=== PATIENT | female | born 1975 | race Caucasian/White ===

== ENCOUNTER 2024-02-05 13:21 | Emergency (ER) | payer BC ==
[~2024-02-05] VITALS: Ht 167.6 cm; Wt 68.0 kg
[2024-02-05 13:59] LABS: BASOPHILS % 0.3 % (0.0-1.0); EOSINOPHILS # (AUTO) 0.2 (0.0-0.4); EOSINOPHILS % 2.5 % (0.0-6.0); HEMATOCRIT 47.8 % (34.2-44.1); HEMOGLOBIN 15.6 g/dL (12.0-16.0); MEAN CORPUSCULAR HEMOGLOBIN 30.4 pg (28-32); MEAN CORPUSCULAR HGB CONC 32.6 g/dL (31-35); MEAN CORPUSCULAR VOLUME 93.2 fL (81-99); MONOCYTES # (AUTO) 0.6 (0.2-0.8); MONOCYTES % 6.6 % (4.4-11.3); NEUTROPHILS # (AUTO) 4.9 (2.1-6.9); NEUTROPHILS % 56.4 % (38.7-80.0); PLATELET COUNT 304 x10e3/uL (140-360); RED BLOOD COUNT 5.13 x10e6/uL (3.6-5.1); RED CELL DISTRIBUTION WIDTH 12.6 % (11.7-14.4); WHITE BLOOD COUNT 8.74 x10e3/uL (4.8-10.8)
[2024-02-05] MEDS: KETOROLAC TROMETHAMINE 30 MG/ML VIAL IV STA (14:13)
[2024-02-05 14:16] LABS: ALBUMIN 3.8 g/dL (3.5-5.0); ANION GAP 13.3 mmol/L (8-16); BILIRUBIN,TOTAL 0.8 mg/dL (0.2-1.2); CALCIUM 10.9 mg/dL (8.4-10.2); CREATININE, SERUM 0.78 mg/dL (0.57-1.11); POTASSIUM 4.3 mmol/L (3.5-5.1); TOTAL PROTEIN 7.6 g/dL (6.5-8.1)
[2024-02-05 14:22] LABS: TROPONIN I 0.005 ng/mL (0-0.300)
[2024-02-05] MEDS ORDERED: NAPROXEN250 MG PO (14:57)
[2024-02-05 15:17] VITALS: PULSE 78; RESP 16; TEMP 98.7; O2SAT 99
== END 2024-02-05 15:24 | disposition home or self-care (01) ==
LOC: ER 13:37
DX: M54.12 Radiculopathy, cervical region (principal); S46.812A Strain of other muscles, fascia and tendons at shoulder and upper arm level, left arm, initial encounter; I10 Essential (primary) hypertension
CPT/HCPCS: 36415; 71045; 80053; 84484; 85025; 93005; 99283; J1885